=== PATIENT | female | born 1965 | race Caucasian/White ===

== ENCOUNTER 2023-02-16 15:13 | Day surgery (SDC) | payer OTHER, SELFPAY ==
[2023-02-16] VITALS (11 sets, daily range): BP systolic 141–167; BP diastolic 87–103; PULSE 66–105; RESP 10–21; TEMP 36.7–36.9; O2SAT 95–99; BMI 41.5
--- NOTE | 2023-02-16 15:55 | ED_ITS ---
Documented by User: SYBIL Ghotra 02/16/23 20:04 HPI - General Adult General Chief complaint: Skin/Abscess/Foreign Body Stated complaint: DIFFICULTY SWALLOWING Time Seen by Provider: 02/16/23 15:38 Source: patient Mode of arrival: walk-in Limitations: no limitations History of Present Illness HPI narrative: patient is a 57-year-old female who presents to the emergency department for possible esophageal food bolus. Patient states she had some difficulty swallowing two days ago when she took a medication, she vomited last night was feeling much better. She states she ate eggs and sausage this afternoon and has not been able to pass any food or fluids since, she has a sensation that something is stuck in her throat. She states she is able to swallow her saliva but it eventually comes back up. She has not had any other focal medical complaints or difficulty breathing. She has had endoscopy two previous times for esophageal food bolus. She has no other major medical issues. Related Data Previous Rx's Medication Instructions Recorded omeprazole 40 mg capsule,delayed 40 mg PO DAILY 4 weeks #28 caps 02/16/23 release Allergies Allergy/AdvReac Type Severity Reaction Status Date / Time No Known Drug Allergies Allergy Verified 02/16/23 15:19 Review of Systems ROS Constitutional Denies: fever or chills Ears, nose, mouth, and throat Denies: throat pain Cardiovascular Denies: chest pain Respiratory Denies: shortness of breath or cough Gastrointestinal Reports: nausea; Denies: vomiting Musculoskeletal Denies: back pain or neck pain Integumentary/Breast Denies: rash Neurological Denies: headache Exam Narrative Exam Narrative: Gen.: Awake, alert, in no distress Head: Normocephalic, atraumatic ENT: Moist mucous membranes Respiratory: No respiratory distress, lungs clear bilaterally Cardio: Regular rate and rhythm Extremities: Moves extremities equally, no injuries noted Psych: Normal mood and affect Neuro: No focal neuro deficit Skin: Warm, dry, intact Constitutional Vital Signs, click to edit/add: Last Vital Signs Temp 98.2 F 02/16/23 22:00 Pulse 66 02/16/23 22:00 Resp 20 02/16/23 22:00 BP 165/96 H 02/16/23 22:00 Pulse Ox 97 02/16/23 22:00 O2 Del Method Room Air 02/16/23 22:04 Course Vital Signs Vital signs: Vital Signs Temperature 98.2 F 02/16/23 15:19 Pulse Rate 84 02/16/23 15:19 Respiratory Rate 18 02/16/23 15:19 Blood Pressure 147/103 H 02/16/23 15:19 Pulse Oximetry 95 02/16/23 15:19 Oxygen Delivery Method Room Air 02/16/23 15:19 Temperature 98.2 F 02/16/23 22:00 Pulse Rate 66 02/16/23 22:00 Respiratory Rate 20 02/16/23 22:00 Blood Pressure 165/96 H 02/16/23 22:00 Pulse Oximetry 97 02/16/23 22:00 Oxygen Delivery Method Room Air 02/16/23 22:04 Medical Decision Making MDM Narrative Medical decision making narrative: patient was treated with IV glucagon, patient had no significant improvement with this medication although she did drink some fluids and vomited up small pieces of what appear to be sausage. On reevaluation after several hours, the patient continues to have a sensation of foreign body stuck in her chest and is continuing to vomit after drinking fluids. I discussed the case with general surgery multiple times, Dr. Holland will take the patient to surgery for endoscopy. Medical Records Medical records reviewed: Yes I reviewed the patient's medical records Discharge Plan Discharge Chief Complaint: Skin/Abscess/Foreign Body Clinical Impression: Food bolus obstruction of intestine Patient Disposition: Admitted as Observation Time of Disposition Decision: 20:04 Condition: Good Discharge Date/Time: 02/16/23 20:04 Documented by User: Bessie Crenshaw MD 02/18/23 19:27 HPI - General Adult General Chief complaint: Skin/Abscess/Foreign Body Stated complaint: DIFFICULTY SWALLOWING Time Seen by Provider: 02/16/23 15:38 Related Data Previous Rx's Medication Instructions Recorded omeprazole 40 mg capsule,delayed 40 mg PO DAILY 4 weeks #28 caps 02/16/23 release Allergies Allergy/AdvReac Type Severity Reaction Status Date / Time No Known Drug Allergies Allergy Verified 02/16/23 15:19 Exam Constitutional Vital Signs, click to edit/add: Last Vital Signs Temp 98.2 F 02/16/23 22:00 Pulse 66 02/16/23 22:00 Resp 20 02/16/23 22:00 BP 165/96 H 02/16/23 22:00 Pulse Ox 97 02/16/23 22:00 O2 Del Method Room Air 02/16/23 22:04 Course Vital Signs Vital signs: Vital Signs Temperature 98.2 F 02/16/23 15:19 Pulse Rate 84 02/16/23 15:19 Respiratory Rate 18 02/16/23 15:19 Blood Pressure 147/103 H 02/16/23 15:19 Pulse Oximetry 95 02/16/23 15:19 Oxygen Delivery Method Room Air 02/16/23 15:19 Temperature 98.2 F 02/16/23 22:00 Pulse Rate 66 02/16/23 22:00 Respiratory Rate 20 02/16/23 22:00 Blood Pressure 165/96 H 02/16/23 22:00 Pulse Oximetry 97 02/16/23 22:00 Oxygen Delivery Method Room Air 02/16/23 22:04 Medical Decision Making MDM Narrative Medical decision making narrative: patient was treated with IV glucagon, patient had no significant improvement with this medication although she did drink some fluids and vomited up small p ieces of what appear to be sausage. On reevaluation after several hours, the patient continues to have a sensation of foreign body stuck in her chest and is continuing to vomit after drinking fluids. I discussed the case with general surgery multiple times, Dr. Holland will take the patient to surgery for endoscopy. Attending physician attestation I have reviewed the mid-level documentation, agree with the documentation, medical decision making and treatment plan as outlined by the mid-level provider. Discharge Plan Discharge Chief Complaint: Skin/Abscess/Foreign Body Clinical Impression: Food bolus obstruction of intestine Patient Disposition: Admitted as Observation Time of Disposition Decision: 20:04 Condition: Good Discharge Date/Time: 02/16/23 20:04
[2023-02-16] MEDS: GLUCAGON 1 MG/ML VIAL IV (16:01)
[2023-02-16] MEDS: ONDANSETRON PF 4 MG/2 ML VIAL IV (16:33)
[2023-02-16] MEDS: LACTATED RINGER'S SOLUTION 1,000 ML 1000 ML IV (20:43)
--- NOTE | 2023-02-16 20:45 | PM.GSCN ---
History of Present Illness Consult details Consult date: 02/16/23 Reason for consult: other Requesting physician: Bessie Crenshaw Narrative: 57-year-old female presented to the Emergency Department with complaint of food bolus in the esophagus that she could not get rid of. I tried glucagon as wwell as Pepsi and keep you Sausage and eggs and felt like something continued to be stuck. I was asked to see the patient. She's had prior EGD with dilatation ?2 for the same problem. Review of Systems ROS Status of ROS 10 or more systems reviewed and unremarkable except as noted in history and below Meds Home Medications and Allergies Allergies Allergy/AdvReac Type Severity Reaction Status Date / Time No Known Drug Allergies Allergy Verified 02/16/23 15:19 Exam Constitutional Vital Signs, click to edit/add: Last Vital Signs Temp 98.5 F 02/16/23 20:15 Pulse 78 02/16/23 20:15 Resp 14 02/16/23 20:15 BP 144/94 H 02/16/23 20:15 Pulse Ox 99 02/16/23 20:15 O2 Del Method Room Air 02/16/23 20:15 Results Labs Labs: All other labs normal. Assessment and Plan Assessment and Plan (1) Food bolus obstruction of intestine: Plan EGD with extraction or pushing through a food bolus with possible dilatation and/or biopsy of esophagus stomach or duodenum. Risks benefits and alternatives to procedure may include perforation or bleeding. She understood and wished to proceed.
--- NOTE | 2023-02-16 21:02 | PM.GSCN ---
History of Present Illness Consult details Consult date: 02/16/23 Reason for consult: other Requesting physician: Bessie Crenshaw Narrative: 57-year-old female presented to the Emergency Department with complaint of food bolus in the esophagus that she could not get rid of. I tried glucagon as wwell as Pepsi and keep you Sausage and eggs and felt like something continued to be stuck. I was asked to see the patient. She's had prior EGD with dilatation ?2 for the same problem. Meds Home Medications and Allergies Home Medications Medication Instructions Recorded Confirmed Type omeprazole 40 mg capsule,delayed 40 mg PO DAILY 4 weeks #28 caps 02/16/23 Rx release Allergies Allergy/AdvReac Type Severity Reaction Status Date / Time No Known Drug Allergies Allergy Verified 02/16/23 15:19 Exam Constitutional Vital Signs, click to edit/add: Last Vital Signs Temp 98.5 F 02/16/23 20:15 Pulse 78 02/16/23 20:15 Resp 14 02/16/23 20:15 BP 144/94 H 02/16/23 20:15 Pulse Ox 99 02/16/23 20:15 O2 Del Method Room Air 02/16/23 20:15 Documenting provider has reviewed patient's vital signs: yes Common normals: no apparent distress, oriented x3 and healthy appearing General appearance: cooperative, comfortable and well developed Cardio Common normals: regular rate GI Common normals: Normal to inspection, nondistended, normoactive bowel sounds present Neuro Common normals: oriented x3 Sensorium/orientation: awake, oriented to person, oriented to place and oriented to time Psych Common normals: mental status grossly normal Results Labs Labs: All other labs normal. Assessment and Plan Assessment and Plan (1) Food bolus obstruction of intestine: Plan EGD with extraction or pushing through a food bolus with possible dilatation and/or biopsy of esophagus stomach or duodenum. Risks benefits and alternatives to procedure may include perforation or bleeding. She understood and wished to proceed. Patient has had this problem on two different occasions and it was recommended she have follow-up esophagram and studies performed but she never followed through and was noncompliant.
--- NOTE | 2023-02-16 21:13 | PM.GSPRC ---
Date of procedure: 02/16/23 Indications for Procedure: food bolus esophagus Pre-op diagnosis: food bolus esophagus Post-op diagnosis: same (esophagitis rule out Lira's esophagus) Procedure: EGD with removal of food bolus and biopsy of distal esophagus and GE junction Findings: small food bolus midesophagus Esophagitis rule out Lira's esophagus Anesthesia: GAVI Surgeon: David Holland Procedure Summary: 57-year-old female was taken to the OR and given a general anesthetic by the combination building inspector after informed consent was obtained from the patient due to a food bolus which is been experiencing since Wednesday. Safia had two previous episodes which she failed to follow-up as recommended with esophagram. On endoscopy today she was found have a small minimal food bolus nonobstructing which was pushed into the stomach. Patient was taken to the operating suite and the Olympus EGD scope was advanced under direct visualization to the posterior pharynx esophagus where the small food bolus was encountered and gently pushed into the stomach without difficulty. The stomach was examined and was completely normal without ulcers polyps or tumors and then the scope was traversed into the 1st 2nd 3rd and 4th portions of duodenum which were normal. The scope was returned to the stomach retro-flexed on itself looking the GE junction which was normal and then the scope was returned to the distal esophagus where she had mild esophagitis and biopsies were taken and hemostasis maintained. The esophagus was again examined and found to be free of any obstruction and the scope was removed frrom the mouth. She'll be asked to take omeprazole OTC twice daily for the next month in follow-up in the office in two weeks at which time we'll order a esophagram. Estimated blood loss (mL): 0 Specimens: esophageal biopsies Complications: No Condition: stable Disposition: PACU
== END 2023-02-16 23:55 | disposition home or self-care (01) ==
LOC: ER 20:04 → MS 21:20 → SURGOUT 02-19 08:59
PROVIDERS: Emergency Provider Emergency Medicine; PCP Family Medicine; Visit Provider Surgery
PROC: (CPT 731; principal; 2023-02-16 21:00)
DX: T18.128A Food in esophagus causing other injury, initial encounter (principal); K20.90 Esophagitis, unspecified without bleeding; K22.70 Barrett's esophagus without dysplasia
CPT/HCPCS: 43239; 43247; 88305; 88313; 96374; 96375; 99285; G0378; J1610; J2704

== ENCOUNTER 2023-03-01 19:57 | Outpatient (OUT) | payer OTHER, SELFPAY | END 2023-03-01 19:58 | disposition home or self-care (01) | LOC: SLEEP 19:57 | PROVIDERS: PCP Family Medicine; Visit Provider Family Medicine | DX: G47.33 Obstructive sleep apnea (adult) (pediatric) (principal) | CPT/HCPCS: 95810 ==

== ENCOUNTER 2023-03-19 20:01 | Emergency (ER) | payer OTHER, SELFPAY ==
[2023-03-19 20:16] VITALS: BP 140/90; PULSE 80; RESP 16; TEMP 36.6; O2SAT 99; BMI 41.6
--- NOTE | 2023-03-19 20:43 | PC.NURSE ---
patient states she has had intermittent dizziness all day, states it gets worse when she moves quickly. states a few hours ago she developed right shoulder pain that is into her neck. denies any history of similar events. denies any syncopal episodes. denies nausea, vomiting, shortness of breath, visual changes. patient ambulatory with independent and steady gait.
--- NOTE | 2023-03-19 21:08 | ED_ITS ---
HPI - Dizziness General Chief Complaint: Dizziness Stated Complaint: DIZZINESS, NECK/SHOULDER/ARM PAIN Time Seen by Provider: 03/19/23 21:08 History of Present Illness HPI Narrative: PT Presents to the emergency department complaining of feeling dizzy and lightheaded all day. States symptoms have been intermittently on and off. She states she's had mild headache and tightness to the right shoulder. She is feeling a lot of muscle tightness to the suprascapular area. She denies the diz ziness worsening with position. She denies any vertigo-like symptoms. She denies any nausea, vomiting, diarrhea, constipation, or abdominal pain. She denies any chest pain, or shortness of breath. Denies any visual disturbance, speech difficulties. She denies any paresthesias, weakness. Patient has not been sick with any fever, chills, or cough. She denies any sore throat or runny nose. She denies any lower extremity edema, or cramping. Does not have a history of heart disease or thrombotic embolic disease.Patient has not tried any medications at home. She denies any flank pain, hematuria, dysuria. Related Data Previous Rx's Medication Instructions Recorded omeprazole 40 mg capsule,delayed 40 mg PO DAILY 4 weeks #28 caps 02/16/23 release Allergies Allergy/AdvReac Type Severity Reaction Status Date / Time No Known Drug Allergies Allergy Verified 03/19/23 20:21 Review of Systems ROS Status of ROS 10 or more systems reviewed and unremarkable except as noted in history and below PFSH [facility] Social History Smoking status: Former smoker Exam Narrative Exam Narrative: Nurses notes and vital signs reviewed and patient is not hypoxic. General: Nontoxic, Well-appearing and in no apparent distress. Skin: Warm, dry, no pallor noted. No Rash Head: Normocephalic, atraumatic. Neck: Supple, non-tender. Eye: Pupils are equal, round and EOMI. No scleral icterus. Ears, Nose, Mouth, and Throat: TM clear, no posterior oropharynx erythema or nasal mucosal hypertrophy, uvula is mid-line Oral mucosa is moist Cardiovascular: Regular Rate and Rhythm without murmur, gallop or rub. Respiratory: No accessory muscle use or respiratory distress. Lungs are clear to auscultation, no wheezing, rales or rhonchi Chest Wall: no tenderness Back: No midline thoracic or lumbar vertebral tenderness. No CVA tenderness Musculoskeletal: normal ROM, no calf or popliteal tenderness, no lower extremity edema/swelling GI: Abdomen is soft, non-distended. Normal bowel sounds. No masses appreciated. No tenderness to palpation. No rebound, guarding, or rigidity noted. Neurological: A&O x4. No cranial nerve dysfunction observed. No truncal ataxia. Moves all extremities. Sensation intact. Psychiatric: Cooperative and interactive. Normal mood and affect. Constitutional Vital Signs, click to edit/add: Last Vital Signs Temp 97.8 F 03/19/23 20:16 Pulse 72 03/19/23 22:58 Resp 16 03/19/23 22:58 BP 157/98 H 03/19/23 22:58 Pulse Ox 98 03/19/23 22:58 O2 Del Method Room Air 03/19/23 20:16 Course Vital Signs Vital signs: Vital Signs Temperature 97.8 F 03/19/23 20:16 Pulse Rate 80 03/19/23 20:16 Respiratory Rate 16 03/19/23 20:16 Blood Pressure 140/90 03/19/23 20:16 Pulse Oximetry 99 03/19/23 20:16 Oxygen Delivery Method Room Air 03/19/23 20:16 Temperature 97.8 F 03/19/23 20:16 Pulse Rate 72 03/19/23 22:58 Respiratory Rate 16 03/19/23 22:58 Blood Pressure 157/98 H 03/19/23 22:58 Pulse Oximetry 98 03/19/23 22:58 Oxygen Delivery Method Room Air 03/19/23 20:16 MDM - Dizziness MDM Narrative Medical decision making narrative: Patient was given IV fluids. EKG showed a sinus rhythm at 78 bpm with low pitched throughout. Extremities unremarkable. Chest x-ray is unremarkable. CT scan of the brain did not show anything acute. All results discussed with patient. Patient will follow up with primary care doctor. Urinalysis sent for culture. No treatment indicated at this time. At this time the patient is without objective evidence of an acute process requiring hospitalization or inpatient management. The patient has remained hemodynamically stable. No additional indication for emergent studies at this time. I answered all questions. Discussed discharge instructions including standard anticipatory guidance and what should prompt a return to the emergency department, including if they get worse are not getting better or develops any new or concerning symptoms. I've given them specific time frame in which to follow-up, and who to follow-up with. The patient demonstrates understanding. Patient is nontoxic and stable for discharge with outpatient follow-up. This note was created with the assistance of a speech recognition program. Although the intention is to generate documents that actually reflects the content of the visit, no guarantees can be provided that every mistake has been identified and corrected by editing. Lab Data Attestation: I reviewed the patient's lab results. Labs: Lab Results 03/19/23 03/19/23 03/19/23 Range/Units 21:05 21:38 23:10 WBC 8.4 (4.0-11.0) 10^3/uL RBC 4.65 (4.20-5.40) 10^6/uL Hgb 13.2 (12.0-16.0) g/dL Hct 39.0 (36.0-48.0) % MCV 83.9 (81.0-99.0) fL MCH 28.4 (26.7-34.0) pg MCHC 33.8 (29.9-35.2) g/dL RDW 13.6 (11.0-15.0) % Plt Count 312 (150-450) 10^3/uL MPV 9.3 L (9.5-13.5) fL Neut % (Auto) 61.0 (43.0-75.0) % Lymph % (Auto) 30.1 (20.5-60.0) % [place] % (Auto) 6.3 (1.7-12.0) % Eos % (Auto) 1.8 (0.9-7.0) % Baso % (Auto) 0.6 (0.2-2.0) % Neut # (Auto) 5.1 (1.4-6.5) 10^3/uL Lymph # (Auto) 2.5 (1.2-3.8) 10^3/uL [place] # (Auto) 0.5 (0.3-0.8) 10^3/uL Eos # (Auto) 0.2 (0.0-0.7) 10^3/uL Baso # (Auto) 0.1 (0.0-0.1) 10^3/uL Abs Immat Gran (auto) 0.02 (0.00-0.03) 10^3/uL Imm/Tot Granulo (auto) 0.2 (0.0-0.5) % Sodium 138 (136-145) mmol/L Potassium 3.6 (3.5-5.1) mmol/L Chloride 103 (98-107) mmol/L Carbon Dioxide 29.8 (21.0-32.0) mmol/L Anion Gap 8.8 BUN 11.0 (7.0-18.0) mg/dL Creatinine 0.69 (0.55-1.02) mg/dL Est GFR ( Amer) >60 (>=60) Est GFR (Non-Af Amer) >60 (>=60) BUN/Creatinine Ratio 15.9 Glucose 108 H (74-106) mg/dL Calcium 8.9 (8.5-10.1) mg/dL Magnesium 2.1 (1.8-2.4) mg/dL Total Bilirubin 0.4 (0.2-1.0) mg/dL AST 14 L (15-37) U/L ALT 25 (14-59) U/L Alkaline Phosphatase 101 (46-116) U/L Troponin I High Sens 18.5 18.4 (4.0-51.3) pg/mL Total Protein 7.4 (6.4-8.2) g/dL Albumin 3.4 (3.4-5.0) g/dL Globulin 4.0 g/dL Albumin/Globulin Ratio 0.9 Urine Color Lt. yellow (YELLOW) Urine Clarity Clear (CLEAR) Urine pH 6.0 (5.0-9.0) Ur Specific [place] 1.025 (1.005-1.025) Urine Protein Negative (NEG/TRACE) mg/dL Urine Glucose (UA) Negative (NEGATIVE) mg/dL Urine Ketones Negative (NEGATIVE) mg/dL Urine Occult Blood Trace-i (NEGATIVE) Urine Nitrite Negative (NEGATIVE) Urine Bilirubin Negative (NEGATIVE) Urine Urobilinogen 0.2 (0.2-1.0) EU/dL Ur Leukocyte Esterase Trace A (NEGATIVE) Urine RBC 0-2 (0-2) #/HPF Urine WBC 5-10 A (NONE SEEN) #/HPF Ur Squamous Epith Cells Few A (NONE/RARE) #/LPF Urine Crystals None seen (None Seen) #/HPF Urine Bacteria Small A (NONE SEEN) #/HPF Urine Casts None seen (NONE SEEN) #/LPF Urine Mucus None seen (NONE SEEN) Ur Culture Indicated? Yes ECG Data Attestation: I personally reviewed and interpreted this ECG as follows: Discharge Plan Discharge Chief Complaint: Dizziness Clinical Impression: Dizziness Patient Disposition: Home, Self-Care Time of Disposition Decision: 00:02 Condition: Good Mode of Transportation: Private Vehicle Prescriptions / Home Meds: No Action omeprazole 40 mg capsule,delayed release(DR/EC) 40 mg PO DAILY 28 Days Qty: 28 0RF Instructions: Dizziness (ED) Stand Alone Forms: Portal Instructions Referrals: Dar Graves MD [Primary Care Provider] - 1 week Discharge Date/Time: 03/20/23 00:47
--- NOTE | 2023-03-19 21:21 | XR_ITS ---
[place] [id number] Patient Name: SUPRIYA REBOLLEDO MRN: [id number] date: 1965 Sex: F Assigned Patient Location: ER Current Patient Location: ER Accession/Order Number: [id number] Exam Date: 03/19/2023 21:42 Report Date: 03/19/2023 22:18 At the request of: LATOYA SCHULTZ Procedure: XR chest 1V EXAMINATION: XR chest 1V, , 03/19/2023 9:42 PM EDT INDICATION: dizziness HISTORY: Ordering Provider Reason for Exam: dizziness Technologist Note: Additional: COMPARISON: None. TECHNIQUE: Chest x-ray: One view. FINDINGS: No pneumothorax, pleural effusion or focal airspace consolidation. Heart is normal in size. Bony thorax is unremarkable. XR/XR chest 1V IMPRESSION: No acute cardiopulmonary process. Electronically authenticated by: RENATO SMITH Date: 03/19/2023 22:18
--- NOTE | 2023-03-19 21:21 | ECG_ITS ---
[facility] Test Date: 2023-03-19 Pat Name: SUPRIYA REBOLLEDO Department: Room: - Gender: Female Rate Engineer: : 1965 Requested By: JAMIE LEON Order Number: [id number] Reading MD: JAMIE LEON Measurements Intervals [place] Rate: 78 P: 74 AK: 166 QRS: 44 QRSD: 90 T: 43 QT: 388 QTc: 421 Interpretive Statements 1100 Sinus rhythm 8102 Low QRS voltage in chest leads 9120 atypical ECG No previous ECG available for comparison Electronically Signed On 03-24-2023 6:59:41 EDT by JAMIE LEON
--- NOTE | 2023-03-19 21:22 | CT_ITS ---
[facility] [place] [id number] Patient Name: SUPRIYA REBOLLEDO MRN: [id number] date: 1965 Sex: F Assigned Patient Location: ER Current Patient Location: ER Accession/Order Number: [id number] Exam Date: 03/19/2023 21:42 Report Date: 03/19/2023 22:06 At the request of: LATOYA SCHULTZ Procedure: CT head/brain wo con EXAMINATION: CT head/brain wo con HISTORY: dizziness - TECHNIQUE: CT head without contrast. All CT scans at this facility use dose modulation, iterative reconstruction, and/or weight based dosing when appropriate to reduce radiation dose to as low as reasonably achievable. COMPARISON: None. RESULT: Post-operative change: None. Acute change: No evidence of an acute intracranial process. Hemorrhage: No evidence of acute intracranial hemorrhage. Mass Lesion / Mass Effect: No evidence of an intracranial mass or extraaxial fluid collection. No significant mass effect. Chronic change: None apparent. Parenchyma: No significant parenchymal volume loss. Ventricles: Normal caliber and morphology. Other: The calvarium, skull base, imaged paranasal sinuses, mastoids, orbits and extracranial soft tissues are unremarkable. CT/CT head/brain wo con IMPRESSION: No acute intracranial abnormality. Electronically authenticated by: EARLENE SWENSON Date: 03/19/2023 22:06
[2023-03-19 21:36] LABS: Bilirubin Urine NEGATIVE (NEGATIVE); Blood Urine TRACE-I (NEGATIVE); Clarity Urine CLEAR (CLEAR); Color Urine LT. YELLOW (YELLOW); Glucose Urine UA NEGATIVE (NEGATIVE); Ketones Urine NEGATIVE (NEGATIVE); Leukocyte Esterase Urine TRACE (NEGATIVE); Nitrite Urine NEGATIVE (NEGATIVE); Protein Urine NEGATIVE (NEG/TRACE); Specific Gravity Urine 1.025 (1.005-1.025); Urobilinogen Urine 0.2 EU/dL (0.2-1.0)
[2023-03-19 21:37] LABS: Urine Microscopic Indicated YES
[2023-03-19 21:43] LABS: Bacteria Urine SMALL #/HPF (NONE SEEN); Cast Seen? NONE SEEN #/LPF (NONE SEEN); Crystals Seen? None Seen #/HPF (None Seen); Mucus Urine NONE SEEN (NONE SEEN); RBC Urine 0-2 #/HPF (0-2); Squamous Epithelial Cell Urine FEW #/LPF (NONE/RARE); Urine Culture Indicated YES
[2023-03-19 21:46] LABS: Basophils Absolute Auto 0.1 10^3/uL (0.0-0.1); Basophils Percent Auto 0.6 % (0.2-2.0); Eosinophils Absolute Auto 0.2 10^3/uL (0.0-0.7); Eosinophils Percent Auto 1.8 % (0.9-7.0); Hemoglobin 13.2 g/dL (12.0-16.0); Immature Granulocytes Abs Auto 0.02 10^3/uL (0.00-0.03); Immature Granulocytes Pct Auto 0.2 % (0.0-0.5); Lymphocytes Absolute Auto 2.5 10^3/uL (1.2-3.8); Lymphocytes Percent Auto 30.1 % (20.5-60.0); Mean Corpuscular HGB Conc 33.8 g/dL (29.9-35.2); Mean Corpuscular Hemoglobin 28.4 pg (26.7-34.0); Mean Corpuscular Volume 83.9 fL (81.0-99.0); Mean Platelet Volume 9.3 fL (9.5-13.5); Monocytes Absolute Auto 0.5 10^3/uL (0.3-0.8); Monocytes Percent Auto 6.3 % (1.7-12.0); Neutrophils Absolute Auto 5.1 10^3/uL (1.4-6.5); Platelet Count 312 10^3/uL (150-450); Red Blood Count 4.65 10^6/uL (4.20-5.40); Red Cell Distribution Width 13.6 % (11.0-15.0); White Blood Count 8.4 10^3/uL (4.0-11.0)
[2023-03-19 22:02] LABS: Alanine Aminotransferase 25 U/L (14-59); Albumin Globulin Ratio 0.9; Albumin Level 3.4 g/dL (3.4-5.0); Alkaline Phosphatase 101 U/L (46-116); Anion Gap 8.8; Aspartate Amino Transferase 14 U/L (15-37); BUN Creatinine Ratio 15.9; Bilirubin Total 0.4 mg/dL (0.2-1.0); Calcium 8.9 mg/dL (8.5-10.1); Carbon Dioxide 29.8 mmol/L (21.0-32.0); Chloride 103 mmol/L (98-107); Estimated GFR (African America >60 (>=60); Estimated GFR (Non-African Ame >60 (>=60); Glucose 108 mg/dL (74-106); Magnesium 2.1 mg/dL (1.8-2.4); Potassium 3.6 mmol/L (3.5-5.1); Sodium 138 mmol/L (136-145); Total Protein 7.4 g/dL (6.4-8.2); Troponin I High Sensitivity 18.5 pg/mL (4.0-51.3)
[2023-03-19] MEDS: 0.9 % SODIUM CHLORIDE 1,000 ML 999 ML IV (22:16)
[2023-03-19 22:58] VITALS: BP 157/98; PULSE 72; RESP 16; O2SAT 98
[2023-03-19 23:45] LABS: Troponin I High Sensitivity 18.4 pg/mL (4.0-51.3)
--- NOTE | 2023-03-20 00:24 | PC.NURSE ---
Discharge instructions reviewed with patient, patient verbalizes understanding of education provided.
== END 2023-03-20 00:47 | disposition home or self-care (01) ==
PROVIDERS: Emergency Provider Emergency Medicine; PCP Family Medicine
DX: R42 Dizziness and giddiness (principal); Z87.891 Personal history of nicotine dependence
CPT/HCPCS: 36415; 70450; 71045; 80053; 81001; 83735; 84484; 85025; 87086; 93005; 99285

== ENCOUNTER 2023-04-06 20:59 | Outpatient (OUT) | payer OTHER, SELFPAY | END 2023-04-06 21:00 | disposition home or self-care (01) | LOC: SLEEP 21:00 | PROVIDERS: PCP Family Medicine; Visit Provider Nurse Practitioner Family | DX: G47.33 Obstructive sleep apnea (adult) (pediatric) (principal) | CPT/HCPCS: 95811 ==

== ENCOUNTER 2023-11-25 12:04 | Emergency (ER) | payer OTHER, SELFPAY ==
[2023-11-25 12:07] VITALS: BP 156/102; PULSE 85; TEMP 37.2; O2SAT 97; BMI 43.4
--- NOTE | 2023-11-25 12:17 | XR_ITS ---
[facility] [place] [id number] Patient Name: SURPIYA REBOLLEDO MRN: [id number] date: 1965 Sex: F Assigned Patient Location: ER Current Patient Location: ED.MAIN Accession/Order Number: [id number] Exam Date: 11/25/2023 12:43 Report Date: 11/25/2023 13:01 At the request of: GALLITO SALGADO Procedure: XR chest 2V EXAMINATION: XR chest 2V HISTORY: shortness of breath , sore throat COMPARISON: No relevant comparison available. FINDINGS: LUNGS: No significant pulmonary parenchymal abnormalities. VASCULATURE: No increased pulmonary vasculature. PLEURA: No pneumothorax, effusion, or pleural thickening. CARDIAC: No cardiomegaly or cardiac silhouette abnormality. MEDIASTINUM: No visible mass or adenopathy. BONES: No fracture or visible bone lesion. OTHER: Negative. XR/XR chest 2V IMPRESSION: 1. No acute cardiopulmonary process. Electronically authenticated by: SHANE CARRASQUILLO Date: 11/25/2023 13:01
--- NOTE | 2023-11-25 12:21 | ED_ITS ---
HPI HPI - General Adult General Chief complaint: Shortness of Breath/Dyspnea Stated complaint: shortness of breath Time Seen by Provider: 11/25/23 12:10 Source: patient Mode of arrival: walk-in Limitations: no limitations History of Present Illness HPI narrative: Yesterday the patient developed nasal congestion, stuffy nose, drainage with sore throat. Little to no cough. Today while at work the patient felt shortness of breath while putting items on the rack at [employer], where she works. No chest pain or back pain. By the time she came to the ED, the shortness of breath had subsided. No fever or chills. No sputum production. No GI or symptoms. Related Data Home Medications ?Medication ?Instructions ?Recorded ?Confirmed prednisone 20 mg tablet 20 mg PO Q12H 11/25/23 11/25/23 Previous Rx's ?Medication ?Instructions ?Recorded albuterol sulfate 90 mcg/actuation 2 inh inhalation Q6H PRN shortness 11/25/23 aerosol inhaler of breath or wheezing #6.7 grams Allergies Allergy/AdvReac Type Severity Reaction Status Date / Time No Known Drug Allergies Allergy Verified 03/19/23 20:21 Opioid HPI Opioid Management Most Recent Opioid Data: No Data to Display PFSH PFSH Social History Smoking status: Former smoker Exam Narrative Exam Narrative: Nurses notes and vital signs reviewed and patient is not hypoxic. afebrile General: Well-appearing and in no apparent distress. Skin: Warm, dry, no pallor noted. No rash. Head: Normocephalic, atraumatic. Neck: Supple, non-tender. No cervical lymphadenopathy. Eye: Pupils are equal, round and EOMI. No scleral icterus. Ears, Nose, Mouth, and Throat: TM are clear, mild posterior oropharynx erythema without exudate, uvula is mid-line. Mild nasal mucosal hypertrophy Oral mucosa is moist Cardiovascular: Regular Rate and Rhythm without murmur, gallop or rub. Respiratory: No accessory muscle use or respiratory distress. Lungs are clear to auscultation, no wheezing, rales or rhonchi Chest Wall: no tenderness Musculoskeletal: normal ROM, no calf or popliteal tenderness, no lower extremity edema/swelling Neurological: A&O x4. No cranial nerve dysfunction observed. No truncal ataxia. Moves all extremities. Sensation intact. Psychiatric: Cooperative and interactive. Normal mood and affect. Constitutional Vital Signs, click to edit/add: Last Vital Signs Temp 98.9 F 11/25/23 12:07 Pulse 85 11/25/23 12:07 Resp 18 11/25/23 12:07 BP 156/102 H 11/25/23 12:07 Pulse Ox 97 11/25/23 12:07 O2 Del Method Room Air 11/25/23 12:07 Course Vital Signs Vital signs: Vital Signs Temperature 98.9 F 11/25/23 12:07 Pulse Rate 85 11/25/23 12:07 Respiratory Rate 18 11/25/23 12:07 Blood Pressure 156/102 H 11/25/23 12:07 Pulse Oximetry 97 11/25/23 12:07 Oxygen Delivery Method Room Air 11/25/23 12:07 Temperature 98.9 F 11/25/23 12:07 Pulse Rate 85 11/25/23 12:07 Respiratory Rate 18 11/25/23 12:07 Blood Pressure 156/102 H 11/25/23 12:07 Pulse Oximetry 97 11/25/23 12:07 Oxygen Delivery Method Room Air 11/25/23 12:07 Medical Decision Making MDM Narrative Medical decision making narrative: I ordered the patient to be swabbed for influenza, COVID and strep. Chest x-ray also ordered to be obtained. Workup was negative including CXR. Patient informed of results and given reasurance. She was discharged home with albuterol MDI and recommendation to take OTC meds for her symptoms. PCP follow up recommended. Work excuse given. Lab Data Lab results reviewed: Yes I reviewed the patient's lab results Labs: Lab Results 11/25/23 11/25/23 Range/Units 12:20 12:24 Influenza Type A Ag Negative Influenza Type B Ag Negative SARS-CoV-2 Ag (CV2AG) Negative (NEGATIVE) Streptococcus Screen Negative Imaging Data Chest x-ray: Radiologist's impression: ITS Impressions Chest X-Ray 11/25/23 12:17 IMPRESSION: 1. No acute cardiopulmonary process. Electronically authenticated by: SHANE CARRASQUILLO Date: 11/25/2023 13:01 Discharge Plan Discharge Stand Alone Forms: Portal Instructions Chief Complaint: Shortness of Breath/Dyspnea Clinical Impression: Acute dyspnea, Upper respiratory infection Patient Disposition: Home, Self-Care Time of Disposition Decision: 13:07 Prescriptions / Home Meds: New albuterol sulfate 90 mcg/actuation HFA aerosol inhaler 2 inh inhalation Q6H PRN (Reason: shortness of breath or wheezing) Qty: 6.7 0RF No Action prednisone 20 mg tablet 20 mg PO Q12H Print Language: Telugu Instructions: Upper Respiratory Infection (ED), Dyspnea (ED) Referrals: Dar Graves MD [Primary Care Provider] - 1 week
[2023-11-25 12:57] LABS: Internal Control Within Normal Limits; Strep A Antigen Screen Negative
[2023-11-25 12:57] LABS: Influenza Virus A Antigen Negative; Influenza Virus B Antigen Negative; Internal Control Within Normal Limits; SARS-CoV-2 Ag NEGATIVE (NEGATIVE)
== END 2023-11-25 13:21 | disposition home or self-care (01) ==
PROVIDERS: Emergency Provider Emergency Medicine; PCP Family Medicine
DX: R06.00 Dyspnea, unspecified (principal); J06.9 Acute upper respiratory infection, unspecified; Z87.891 Personal history of nicotine dependence; Z20.822 Contact with and (suspected) exposure to COVID-19
CPT/HCPCS: 71046; 87070; 87804; 87811; 87880; 99284

== ENCOUNTER 2024-05-17 15:13 | Emergency (ER) | payer OTHER, SELFPAY ==
[2024-05-17 15:19] VITALS: BP 150/103; PULSE 75; TEMP 36.6; O2SAT 99; BMI 48.1
--- OUTSIDE RECORDS SUMMARY | 2024-05-17 15:24 | XMS_ITS | CCD ---
Author Organization [facility] Informat ion Partnership [facility] Care Team Providers Care Support Architect Name Role Phone GAURANG MILES Primary Care DR SUZAN Dacosta Consulting Syed PEPE, DR SUZAN Gonzáles Admitting Syed PEPE, DR SUZAN Gonzáles Attending LATOYA Fontana Consulting Unavailable YEN GARCIA Consulting Unavailable JAJA WILLINGHAM Attending JAJA Carbajal Referring Unavailable Problems Problem Classification Problem Date Documented Da te Episodic/Chronic Other and unspecified benign neoplasm (1 source) Polyp of stomach and duodenum; Translations: [POLYP OF STOMACH AND DUODENUM] Onset: 06-18-2022 Episodic Other injuries and conditions due to external causes (4 sources) Food in esophagus causing other injury, initial encounter; Translations: [FOOD ESOPH CAUS OTH INJURY INIT ENC] Onset: 06-13-2022 Episodic Other nutritional; endocrine; and metabolic disorders (1 source) Morbid (severe) obesity due to excess calories; Translations: [MORBID SEVERE OBES D/T EXCESS ABUNDIO] Onset: 06-18-2022 Chronic Other nutritional; endocrine; and metabolic disorders (1 source) Body mass index (BMI) 45.0-49.9, adult; Translations: [BODY MASS INDEX BMI 45.0-49.9 ADULT] Onset: 06-18-2022 Chronic Screening and history of mental health and substance abuse codes (1 source) Personal history of nicotine dependence; Translations: [PERSONAL HISTORY OF NICOTINE DEPEND] Onset: 06-18-2022 Episodic Unclassified (1 source) ESOPHAGITIS UNSPEC WITHOUT BLEEDING; Translations: [ESOPHAGITIS UNSPEC WITHOUT BLEEDING] Onset: 06-18-2022 Results Test Name Value Interpretation Reference Range Facil ity XR LUMBAR SPINE 2-3 VIEWSon 11-16-2023 XR LUMBAR SPINE 2-3 VIEWS FINDINGS: Vertebral body heights are normal. Mild to moderate disc space loss throughout the lumbar spine, greatest involvement L5-S1. Sclerosis involves posterior elements of the mid and distal lumbar spine and sacroiliac joints (right greater than left); however, no acute spondylolysis or spondylolisthesis is seen (chronic spondylolysis at L4, L5) No acute fracture is identified. Soft tissues are relatively unremarkable. IMPRESSION: Distal lumbar and SI joint arthritis, normal alignment, no fracture TRANSCRIBED BY: ELECTRONICALLY SIGNED BY: Kelvin Ventura MD Normal Not Available XR WRIST 3+ VIEWS LEFTon XR WRIST 3+ VIEWS LEFT FINDINGS: Mild arthritic changes involve the 1st carpal metacarpal, radiocarpal joints. Mild ulna minus variance. No evidence of cortical or stress fracture is seen. No focal soft tissue swelling is seen. No foreign body is visualized. IMPRESSION: Mild arthritis, no fracture TRANSCRIBED BY: ELECTRONICALLY SIGNED BY: Kelvin Ventura MD Normal Not Available Operative Reporton Operative Report [id number] D:127 Normal [facility] Physician Referralon 023 Physician Referral [id number] D:127 Normal [facility] Encounters Encounter Date Encounter Type Care Provider Facility Start: 11-16-2023 End: 11-17-2023 ambulatory JAJA WILLINGHAM Not Available Start: 02-16-2023 ambulatory Facility:[facility] Zu[facility] Start: 06-13-2022 End: 06-13-2022 ambulatory GAURANG GINGER Facility: Payers Date Payer Category Payer Unknown [id number] .[id number] 1965 Unknown [id number] 1965 Unknown [id number] .[id number] 1959 Unknown [id number] Summary Purpose Family History No Family History Records FoundNo Family History Records FoundNo Family History Records Found Advance Directives No Advanced Directives Records FoundNo Advanced Directives Records FoundNo Advanced Directives Records Found Additional Source Comments INFORMATION SOURCE (unrecogn ized section and content) DATE CREATED AUTHOR 06/19/2022 [facility] DATE CREATED AUTHOR AUTHOR'S ORGANIZ ATION 02/18/2023 [facility] DATE CREATED AUTHOR AUTHOR'S ORGANIZ ATION 11/21/2023 [facility] EPIC FOR RECORDS PERTAINING TO PATIENTS WHO ARE OR HAVE BEEN ENROLLED IN A CHEMICAL DEPENDENCY/SUBSTANCEABUSE PROGRAM, SOME INFORMATION MAY BE OMITTED. This clinical summary was aggregated from multiple sources. Caution should be exercised in using it in the provision of clinical care. This summary normalizes information from multiple sources, and as a consequence, information in this document may materially change the coding, format and clinical context of patient data. In addition, data may be omitted in some cases. CLINICAL DECISIONS SHOULD BE BASED ON THE PRIMARY CLINICAL RECORDS. [facility] [employer] provides no warranty or guarantee of the accuracy or completeness of information in this document.
--- NOTE | 2024-05-17 15:29 | XR_ITS ---
[address] [address] Patient Name: SUPRIYA REBOLLEDO MRN: [id number] date: 1965 Sex: F Assigned Patient Location: ER Current Patient Location: Accession/Order Number: [id number] Exam Date: 05/17/2024 15:46 Report Date: 05/17/2024 17:10 At the request of: RENEA BROWN Procedure: XR knee LT 4V EXAM: XR knee LT 4V HISTORY: left knee pain COMPARISON: None. TECHNIQUE: 4 views. FINDINGS: Minimal tricompartmental osteoarthritis. No evidence of fracture or dislocation. Small joint effusion. XR/XR knee LT 4V IMPRESSION: 1. Minimal tricompartmental osteoarthritis. 2. Small joint effusion. Electronically authenticated by: ELZBIETA ROSSI Date: 05/17/2024 17:10
--- NOTE | 2024-05-17 15:30 | ED_ITS ---
HPI HPI - Extremity Injury (Lower) General Chief Complaint: Extremity Injury, Lower Stated Complaint: Extremity Injury, Lower Time Seen by Provider: 05/17/24 15:14 Source: patient Mode of arrival: walk-in History of Present Illness HPI Narrative: Patient is a 58-year-old female who presents to the emergency department for 2- week history of pain in the left knee. She states that she has been having intermittent issues in the posterior left knee and lateral knee, significantly worse with walking. She states today she was walking across a field when she felt a pop in the back of the left knee. She states the area is much more painful at this time. No falls or direct injury. She denies any calf pain. No medications taken prior to arrival. Related Data Previous Rx's ?Medication ?Instructions ?Recorded hydrocodone 5 mg-acetaminophen 325 1 tab PO Q6H PRN pain 3 days #12 05/17/24 mg tablet tabs methylprednisolone 4 mg tablets in See Rx Instructions .Route 05/17/24 a dose pack (Medrol (Edin)) .COMPLEX #21 ea Allergies Allergy/AdvReac Type Severity Reaction Status Date / Time No Known Drug Allergies Allergy Verified 03/19/23 20:21 Opioid HPI Opioid Management Most Recent Pain and Opioid Data: Last Pain Scale 8 05/17/24 16:28 05/17/24 Last ED Pain Assessment 05/17/24 16:28 Review of Systems ROS Constitutional Denies: fever or chills Cardiovascular Denies: chest pain Respiratory Denies: shortness of breath Gastrointestinal Denies: abdominal pain, nausea or vomiting Musculoskeletal Reports: extremity pain, extremity swelling, joint pain and limited range of motion; Denies: back pain or neck pain Integumentary/Breast Denies: rash Neurological Denies: headache, numbness in extremities or weakness in extremities Hematologic/Lymphatic Denies: easy bruising or easy bleeding PFSH PFSH Social History Smoking status: Former smoker Little interest or pleasure in doing things: not at all Feeling down, depressed, or hopeless: not at all Exam Narrative Exam Narrative: Gen.: Awake, alert, in no distress Head: Normocephalic, atraumatic ENT: Moist mucous membranes Respiratory: No respiratory distress Extremities: Diffuse tenderness of the posterior and lateral left knee with no joint effusion or patellar laxity noted. Pain with range of motion to flexion and extension of the left knee. Left calf is soft and compressible, nontender Psych: Normal mood and affect Neuro: No focal neuro deficit Skin: Warm, dry, intact Constitutional Vital Signs, click to edit/add: Last Vital Signs Temp 97.8 F 05/17/24 15:19 Pulse 75 05/17/24 15:19 Resp 18 05/17/24 15:19 BP 150/103 H 05/17/24 15:19 Pulse Ox 99 05/17/24 15:19 Course Vital Signs Vital signs: Vital Signs Temperature 97.8 F 05/17/24 15:19 Pulse Rate 75 05/17/24 15:19 Respiratory Rate 18 05/17/24 15:19 Blood Pressure 150/103 H 05/17/24 15:19 Pulse Oximetry 99 05/17/24 15:19 Temperature 97.8 F 05/17/24 15:19 Pulse Rate 75 05/17/24 15:19 Respiratory Rate 18 05/17/24 15:19 Blood Pressure 150/103 H 05/17/24 15:19 Pulse Oximetry 99 05/17/24 15:19 MDM - Extremity Injury (Lower) MDM Narrative Medical decision making narrative: Patient medicated with Solu-Medrol in the ER, x-rays show arthritis and small joint effusion, she was placed in an Tunde wrap, referred to orthopedics and remains neurovascularly intact at discharge. Rest, ice, elevate. Return to the ER if symptoms change or worsen SUPERVISED APC VISIT, PHYSICIAN ATTESTATION: Based on the medical record the care appears appropriate. ? Medical Records Attestation: I reviewed the patient's medical records. Imaging Data XR knee: Attestation: I have reviewed the pertinent imaging results. Radiologist's impression: ITS Impressions Knee X-Ray 05/17/24 15:29 IMPRESSION: 1. Minimal tricompartmental osteoarthritis. 2. Small joint effusion. Electronically authenticated by: ELZBIETA ROSSI Date: 05/17/2024 16:18 Discharge Plan Discharge Chief Complaint: Extremity Injury, Lower Clinical Impression: Left knee sprain Patient Disposition: Home, Self-Care Time of Disposition Decision: 16:23 Condition: Good Prescriptions / Home Meds: New hydrocodone-acetaminophen 5-325 mg tablet 1 tab PO Q6H PRN (Reason: pain) 3 Days Qty: 12 0RF Rx Instructions: DX: M25.562 methylprednisolone [Medrol (Edin)] 4 mg tablets,dose pack See Rx Instructions .ROUTE .COMPLEX Qty: 21 0RF Rx Instructions: Taper as directed Print Language: Turkmen Instructions: Knee Sprain (ED) Referrals: Dar Graves MD [Primary Care Provider] - 1 week Krishna Glass MD [Physician] - 05/22/24 11:00 am
[2024-05-17] MEDS: METHYLPREDNISOLONE SOD SUCC PF 125 MG/2 ML VIAL IM (15:39)
[2024-05-17 16:27] VITALS: BP 147/74; PULSE 77; O2SAT 99
== END 2024-05-17 16:50 | disposition home or self-care (01) ==
PROVIDERS: Emergency Provider Emergency Medicine; PCP Family Medicine
DX: S83.92XA Sprain of unspecified site of left knee, initial encounter (principal); Z87.891 Personal history of nicotine dependence; X50.9XXA Other and unspecified overexertion or strenuous movements or postures, initial encounter
CPT/HCPCS: 73564; 96372; 99284; J2919

== ENCOUNTER 2024-09-18 18:52 | Emergency (ER) | payer OTHER, SELFPAY ==
[2024-09-18 18:55] VITALS: BP 157/86; PULSE 89; TEMP 36.8; O2SAT 98; BMI 45.4
--- NOTE | 2024-09-18 18:58 | XR_ITS ---
[facility] [place] [id number] Patient Name: SUPRIYA REBOLLEDO MRN: [id number] date: 1965 Sex: F Assigned Patient Location: ER Current Patient Location: ER Accession/Order Number: [id number] Exam Date: 09/18/2024 19:15 Report Date: 09/18/2024 20:34 At the request of: MYNOR DUFFY Procedure: XR knee RT 4V EXAM: XR knee RT 4V HISTORY: injury COMPARISON: None. TECHNIQUE: 4 views of the right knee FINDINGS: The bones are intact. The alignment is anatomic. There are degenerative changes of the joints. The soft tissues are grossly unremarkable. XR/XR knee RT 4V IMPRESSION: No acute osseous abnormality. Electronically authenticated by: SVITLANA WILLIAMSON Date: 09/18/2024 20:34
--- OUTSIDE RECORDS SUMMARY | 2024-09-18 18:58 | XMS_ITS | CCD ---
Author Organization [facility] Informat ion Partnership [facility] Care Team Providers Care Reexaminer Name Role Phone GAURANG MILES Primary Care DR SUZAN Dacosta Consulting Syed PEPE, DR SUZAN Gonzáles Admitting Syed PEPE, DR USZAN Gonzáles Attending LATOYA Fontana Consulting Unavailable YEN [...] Normal Not Available Operative Reporton Operative Report [id number] D:127 Normal [facility] Physician Referralon 023 Physician Referral [id number] D:127 Normal [facility] Encounters Encounter Date Encounter Type Care Provider Facility Start: 11-16-2023 End: 11-17-2023 ambulatory JAJA WILLINGHAM Not Available Start: 02-16-2023 ambulatory Facility:Jolie Zuñiga Start: 06-13-2022 End: 06-13-2022 ambulatory GAURANG GINGER Facility: Payers Date Payer Category Payer Unknown [id number] .[id number] 1965 Unknown [id number] .[id number] 1965 Unknown [id number] .[id number] 1959 Unknown [id number] Summary Purpose Family History No Family History Records FoundNo Family History Records FoundNo Family History Records Found Advance Directives No Advanced Directives Records FoundNo Advanced Directives Records FoundNo Advanced Directives Records Found Additional Source Comments INFORMATION SOURCE (unrecogn ized section and content) DATE CREATED AUTHOR 06/19/2022 [facility] DATE CREATED AUTHOR AUTHOR'S ORGANIZ ATION 02/18/2023 [facility] DATE CREATED AUTHOR AUTHOR'S ORGANIZ ATION 11/21/2023 [facility] EPIC FOR RECORDS PERTAINING TO [...] BE BASED ON THE PRIMARY CLINICAL RECORDS. [facility] [employer] provides no warranty or guarantee of the accuracy or completeness of information in this document.
--- NOTE | 2024-09-18 20:45 | ED.LOWEXI1 ---
HPI HPI - Extremity Injury (Lower) General Chief Complaint: Extremity Injury, Lower Stated Complaint: right leg pain Time Seen by Provider: 09/18/24 20:19 Source: patient Limitations: no limitations History of Present Illness HPI Narrative: Patient is a 59-year-old female who presents to the emergency department for right knee injury that occurred to the right posterior knee just prior to arrival. She states about 2 hours ago she was walking upstairs when she felt a pop in the back of the right knee. Pain is worse with movement and walking. She denies any falls or direct injury. No peripheral paresthesias or ankle pain. Related Data Previous Rx's ?Medication ?Instructions ?Recorded hydrocodone 5 mg-acetaminophen 325 1 tab PO Q6H PRN pain 3 days #12 05/17/24 mg tablet tabs methylprednisolone 4 mg tablets in See Rx Instructions .Route 05/17/24 a dose pack (Medrol (Edin)) .COMPLEX #21 ea methocarbamol 750 mg tablet 750 mg PO TID PRN pain #20 tabs 09/18/24 prednisone 20 mg tablet See Rx Instructions .Route 09/18/24 .COMPLEX #12 tabs Allergies Allergy/AdvReac Type Severity Reaction Status Date / Time No Known Drug Allergies Allergy Verified 03/19/23 20:21 Opioid HPI Opioid Management Most Recent Pain and Opioid Data: Last Pain Scale 8 05/17/24 16:28 05/17/24 Review of Systems ROS Constitutional Denies: fever or chills Ears, nose, mouth, and throat Denies: throat pain or nasal congestion Respiratory Denies: shortness of breath Gastrointestinal Denies: nausea or vomiting Musculoskeletal Reports: extremity pain, joint pain and limited range of motion; Denies: back pain or neck pain Integumentary/Breast Denies: rash Neurological Denies: numbness in extremities or weakness in extremities Hematologic/Lymphatic Denies: easy bruising or easy bleeding PFSH PFSH Social History Smoking status: Former smoker Little interest or pleasure in doing things: not at all Feeling down, depressed, or hopeless: not at all Exam Narrative Exam Narrative: Gen.: Awake, alert, in no distress Head: Normocephalic, atraumatic ENT: Moist mucous membranes Respiratory: No respiratory distress Extremities: Moves extremities equally, pain with flexion and extension of the right knee, no bony tenderness of the right anterior patella. No bony tenderness of the right ankle. Calves are soft and nontender Psych: Normal mood and affect Neuro: No focal neuro deficit Skin: Warm, dry, intact Constitutional Vital Signs, click to edit/add: Last Vital Signs Temp 98.3 F 09/18/24 18:55 Pulse 89 09/18/24 18:55 Resp 18 09/18/24 18:55 BP 157/86 H 09/18/24 18:55 Pulse Ox 98 09/18/24 18:55 O2 Del Method Room Air 09/18/24 18:55 Course Vital Signs Vital signs: Vital Signs Temperature 98.3 F 09/18/24 18:55 Pulse Rate 89 09/18/24 18:55 Respiratory Rate 18 09/18/24 18:55 Blood Pressure 157/86 H 09/18/24 18:55 Pulse Oximetry 98 09/18/24 18:55 Oxygen Delivery Method Room Air 09/18/24 18:55 Temperature 98.3 F 09/18/24 18:55 Pulse Rate 89 09/18/24 18:55 Respiratory Rate 18 09/18/24 18:55 Blood Pressure 157/86 H 09/18/24 18:55 Pulse Oximetry 98 09/18/24 18:55 Oxygen Delivery Method Room Air 09/18/24 18:55 MDM - Extremity Injury (Lower) MDM Narrative Medical decision making narrative: Exam is consistent with right knee sprain, she is neurovascularly intact, short knee immobilizer and placed in the ER. She brought crutches from home. She has been referred to orthopedics previously for the left knee. She was placed on a prednisone taper and muscle relaxant. Follow-up with Ortho as needed and return to the ER if symptoms change or worsen. Rest, ice, elevate. SUPERVISED APC VISIT, PHYSICIAN ATTESTATION: Based on the medical record the care appears appropriate. ? Medical Records Attestation: I reviewed the patient's medical records. Imaging Data XR knee: Attestation: I have reviewed the pertinent imaging results. Radiologist's impression: ITS Impressions Knee X-Ray 09/18/24 18:58 IMPRESSION: No acute osseous abnormality. Electronically authenticated by: SVITLANA WILLIAMSON Date: 09/18/2024 20:34 Discharge Plan Discharge Chief Complaint: Extremity Injury, Lower Clinical Impression: Right knee sprain Patient Disposition: Home, Self-Care Time of Disposition Decision: 20:44 Condition: Good Prescriptions / Home Meds: New prednisone 20 mg tablet See Rx Instructions .ROUTE .COMPLEX Qty: 12 0RF Rx Instructions: 3 tabs daily for 2 days, then 2 tabs daily for 2 days, then 1 tab daily for 2 days methocarbamol 750 mg tablet 750 mg PO TID PRN (Reason: pain) Qty: 20 0RF No Action hydrocodone-acetaminophen 5-325 mg tablet 1 tab PO Q6H PRN (Reason: pain) 3 Days Qty: 12 0RF Rx Instructions: DX: M25.562 methylprednisolone [Medrol (Edin)] 4 mg tablets,dose pack See Rx Instructions .ROUTE .COMPLEX Qty: 21 0RF Rx Instructions: Taper as directed Print Language: Paraguayan Instructions: Knee Sprain (ED) Referrals: Dar Graves MD [Primary Care Provider] - 1 week
== END 2024-09-18 21:05 | disposition home or self-care (01) ==
PROVIDERS: Emergency Provider Emergency Medicine; PCP Family Medicine
DX: S83.91XA Sprain of unspecified site of right knee, initial encounter (principal); X58.XXXA Exposure to other specified factors, initial encounter; Z87.891 Personal history of nicotine dependence
CPT/HCPCS: 73564; 99283